=== PATIENT | female | born 1960 | race African-American/Black ===

== ENCOUNTER 2020-06-02 10:07 | Emergency (ER) | payer BC, MEDICARE ==
[~2020-06-02] VITALS: Ht 167.6 cm; Wt 81.2 kg
[~2020-06-02 10:07] MED LIST: BACLOFEN10 MG PO; CELEXA40 MG PO; DEXILANT60 MG PO; LOSARTAN POTAS100 MG PO; METOPROLOL SUCC50 MG PO; NIFEDIPINE ER30 M1 PO; OMEPRAZOLE40 MG PO; PREDNISONE5 MG PO; Prednisone PO; SENSIPAR60 MG PO; TIZANIDINE HCL2 MG PO; VASOTEC5 MG PO; VITAMIN D250000 UNIT PO; Z.0.METOPROLOL SUC10 PO; Z.0.PLAQUENIL200 MG PO; Z.0.PREDNISONE5 M1 PO; Z.0.RENVELA800 MG PO
[2020-06-02] MEDS ORDERED: BACITRACIN ZINC 0.9GM TP ONE ×2 (11:12→11:15)
[2020-06-02] MEDS ORDERED: KEFLEX500 MG PO (12:04)
== END 2020-06-02 12:26 | disposition home or self-care (01) ==
LOC: FSED 10:20
DX: S50.811A Abrasion of right forearm, initial encounter (principal); S80.01XA Contusion of right knee, initial encounter; S90.01XA Contusion of right ankle, initial encounter; W01.0XXA Fall on same level from slipping, tripping and stumbling without subsequent striking against object, initial encounter; Y93.01 Activity, walking, marching and hiking; Z79.01 Long term (current) use of anticoagulants; I10 Essential (primary) hypertension; Z99.2 Dependence on renal dialysis; E03.9 Hypothyroidism, unspecified; M32.9 Systemic lupus erythematosus, unspecified; E78.5 Hyperlipidemia, unspecified; F41.9 Anxiety disorder, unspecified; M54.9 Dorsalgia, unspecified; G89.29 Other chronic pain
CPT/HCPCS: 99284

== ENCOUNTER 2021-10-08 15:57 | Inpatient (IN) | payer MEDICARE ==
[~2021-10-08] VITALS: Ht 167.6 cm; Wt 72.6 kg
[~2021-10-08 15:57] MED LIST changes: +KEFLEX500 MG PO
[2021-10-08] MEDS ORDERED: ASPIRIN 325 MG TAB PO ONE (16:15)
[2021-10-08] MEDS ORDERED: Morphine 2mg Syringe 2 MG/ML SYR IV PRN ×2 (16:30→18:00)
[2021-10-08] MEDS ORDERED: ONDANSETRON HCL INJ 2MG/ML 2ML 2 MG/ML VIAL IV PRN ×2 (16:30→18:00)
[2021-10-08] MEDS: NITROGLYCERIN 0.2 MG/HR PATCH TOP SCH (17:00)
[2021-10-08 17:04] LABS: BASOPHILS % 0.2 % (0.0-1.0); HEMATOCRIT 31.7 % (34.2-44.1); HEMOGLOBIN 9.6 g/dL (12.0-16.0); LYMPHOCYTES % 19.1 % (18.0-39.1); MEAN CORPUSCULAR HEMOGLOBIN 30.5 pg (28-32); MEAN CORPUSCULAR HGB CONC 30.3 g/dL (31-35); MEAN CORPUSCULAR VOLUME 100.6 fL (81-99); MONOCYTES # (AUTO) 0.4 (0.2-0.8); MONOCYTES % 7.7 % (4.4-11.3); NEUTROPHILS % 72.6 % (38.7-80.0); PLATELET COUNT 143 x10e3/uL (140-360); RED BLOOD COUNT 3.15 x10e6/uL (3.6-5.1); RED CELL DISTRIBUTION WIDTH 18.7 % (11.7-14.4)
[2021-10-08 17:21] LABS: ALBUMIN 3.5 g/dL (3.5-5.0); ALBUMIN/GLOBULIN RATIO 0.9 (0.8-2.0); ANION GAP 18.1 mmol/L (8-16); CALCIUM 7.2 mg/dL (8.4-10.2); CREATININE, SERUM 9.6 mg/dL (0.57-1.11)
[2021-10-08 17:24] LABS: POTASSIUM 5.1 mmol/L (3.5-5.1)
[2021-10-08] MEDS ORDERED: CALCITRIOL0.5 MCG PO (17:24)
[2021-10-08] MEDS ORDERED: ASPIRIN81 MG PO (17:24)
[2021-10-08] MEDS ORDERED: TOPIRAMATE25 MG PO (17:24)
[2021-10-08] MEDS ORDERED: CARVEDILOL25 MG PO (17:24)
[2021-10-08] MEDS ORDERED: DILTIAZEM 24HR180 MG PO (17:24)
[2021-10-08] MEDS ORDERED: HYDRALAZINE HCL25 MG PO (17:24)
[2021-10-08] MEDS ORDERED: DIOVAN160 MG PO (17:24)
[2021-10-08] MEDS ORDERED: CRESTOR10 MG PO (17:24)
[2021-10-08] MEDS ORDERED: SODIUM CHLORIDE FLUSH 10 ML SYR INJ PRN (18:00)
[2021-10-08] MEDS ORDERED: ASPIRIN 81 MG CHEW TAB PO ONE (18:00)
[2021-10-08] MEDS ORDERED: HYDRALAZINE HCL 10 MG TAB PO ONE (18:15)
[2021-10-08] MEDS ORDERED: HYDRALAZINE HCL 20 MG/ML VIAL IV PRN (19:30)
[2021-10-08] MEDS: VALSARTAN 160 MG TAB PO SCH (19:55)
[2021-10-08 20:00] VITALS: BP 163/71
[2021-10-08] MEDS ORDERED: VALSARTAN 160 MG TAB ONE (20:00)
[2021-10-08] MEDS: CARVEDILOL 10 MG CAPCR PO SCH (20:33)
[2021-10-08 20:44] VITALS: BP 182/79
[2021-10-08 21:43] VITALS: BP 182/79
[2021-10-08] MEDS ORDERED: ZOLPIDEM TARTRAT5 MG PO (22:09)
[2021-10-08] MEDS ORDERED: ZOLPIDEM TARTRATE 5 MG TAB PO PRN (22:45)
[2021-10-08] MEDS ORDERED: ACETAMINOPHEN 325 MG TAB PO PRN (22:45)
[2021-10-09] VITALS (7 sets, daily range): BP systolic 109–181; BP diastolic 62–80
[2021-10-09] MEDS ORDERED: SEVELAMER CARBONATE 800 MG TAB PO PRN (05:00)
[2021-10-09 06:20] LABS: ANION GAP 19.6 mmol/L (8-16); CREATININE, SERUM 10.78 mg/dL (0.57-1.11); POTASSIUM 4.6 mmol/L (3.5-5.1)
[2021-10-09 06:24] LABS: CALCIUM 6.8 mg/dL (8.4-10.2)
[2021-10-09 06:48] LABS: CREATINE KINASE MB 1.3 ng/mL (0-5.0)
[2021-10-09] MEDS ORDERED: PANTOPRAZOLE SOD 40 MG TABEC PO SCH (07:30)
[2021-10-09] MEDS: SEVELAMER CARBONATE 800 MG TAB PO SCH ×3 (08:26→17:58)
[2021-10-09] MEDS: DILTIAZEM HCL ER 120 MG CAP PO SCH ×2 (08:26→17:57)
[2021-10-09] MEDS: VALSARTAN 160 MG TAB PO SCH ×2 (08:26→17:57)
[2021-10-09] MEDS: HYDROXYCHLOROQUINE SULFATE 200 MG TAB PO SCH ×2 (08:26→17:58)
[2021-10-09] MEDS: CARVEDILOL 10 MG CAPCR PO SCH ×2 (08:26→17:57)
[2021-10-09] MEDS: HYDRALAZINE HCL 25 MG TAB PO SCH ×2 (08:26→17:57)
[2021-10-09] MEDS: NITROGLYCERIN 0.2 MG/HR PATCH TOP SCH (08:27)
[2021-10-09] MEDS: TOPIRAMATE 25 MG TAB PO SCH ×2 (08:27→17:58)
[2021-10-09] MEDS ORDERED: ASPIRIN 81 MG CHEW TAB PO SCH (09:00)
[2021-10-09] MEDS ORDERED: PREDNISONE 5 MG TAB PO SCH (09:00)
[2021-10-09] MEDS ORDERED: SIMVASTATIN 40 MG TAB PO SCH (09:00)
[2021-10-09] MEDS ORDERED: ASPIRIN 81 MG ENTERIC COATED PO SCH (09:00)
[2021-10-09] MEDS ORDERED: CALCITRIOL 0.5 MCG CAP PO SCH (09:00)
[2021-10-09] MEDS ORDERED: CINACALCET 30 MG TAB PO SCH (09:00)
[2021-10-09] MEDS ORDERED: EPOETIN ALFA-EPBX 10,000 UNIT/ML VIAL SC NR (10:00)
[2021-10-09] MEDS ORDERED: SODIUM CHLORIDE 0.9% 1000ML 1,000 ML ONE (13:26)
[2021-10-09 13:27] LABS: CREATINE KINASE MB 1.5 ng/mL (0-5.0)
[2021-10-09] MEDS ORDERED: ONDANSETRON HCL 4 MG ORAL DISINTEGRATING TAB PO PRN (18:00)
[2021-10-14] MEDS ORDERED: ERGOCALCIFEROL 50,000 UNIT CAP PO SCH (09:00)
== END 2021-10-09 17:56 | disposition home or self-care (01) | DRG 545 ==
LOC: ER 16:03 → ERHOLD 17:56 → MED/SURG 19:45
PROVIDERS: ADMIT Internal Medicine; ATTEND Internal Medicine
DX: M32.19 Other organ or system involvement in systemic lupus erythematosus (principal); N18.6 End stage renal disease; I12.0 Hypertensive chronic kidney disease with stage 5 chronic kidney disease or end stage renal disease; I48.20 Chronic atrial fibrillation, unspecified; R07.89 Other chest pain; R07.81 Pleurodynia; Z99.2 Dependence on renal dialysis; Z95.2 Presence of prosthetic heart valve; E03.9 Hypothyroidism, unspecified; Z87.440 Personal history of urinary (tract) infections; D64.9 Anemia, unspecified; Z88.5 Allergy status to narcotic agent; D63.8 Anemia in other chronic diseases classified elsewhere; M34.9 Systemic sclerosis, unspecified; Z82.49 Family history of ischemic heart disease and other diseases of the circulatory system; E83.51 Hypocalcemia; T50.995A Adverse effect of other drugs, medicaments and biological substances, initial encounter; Z20.822 Contact with and (suspected) exposure to COVID-19; E87.70 Fluid overload, unspecified
CPT/HCPCS: 36415; 71045; 80048; 80053; 82550; 82553; 83880; 84484; 85025; 86704; 86706; 87340; 93005; 93306; 94799; 99284; J0360; J7030; J7512; U0002